=== PATIENT | female | born 1970 | race Caucasian/White ===

== ENCOUNTER 2017-09-21 17:23 | Emergency (ER) | payer MEDICAID ==
[2017-09-21] MEDS ORDERED: Acetaminophen 500 MG Tab PO ONE (17:57)
--- NOTE | 2017-09-21 18:01 | EDM.PDOC ---
ED HPI GENERAL MEDICAL PROBLEM - General Chief Complaint: Cardiovascular Problem Stated Complaint: HBP Time Seen by Provider: 09/21/17 17:49 - History of Present Illness INITIAL COMMENTS - FREE TEXT/NARRATIVE: HISTORY AND PHYSICAL: History of present illness: The patient is a 47-year-old female with no stated medical history and has a known hysterectomy and is not and presents with a 1 year history of elevated blood pressure which she takes at home he lives in [facility]. The patient says that she uses her roommate's blood pressure cuff and has taken her blood pressure once a week for the last year and knows it is been running elevated with the top number in the 200s. She has not sought treatment with a provider. The patient admits that she does eat food on the go and may ED sodium rich diet which is not correct for that either. The patient says that she has had intermittent headaches for the last 6 months but uses over -the-counter meds and is better. She presents today because she is here in town trying to relocate and live closer to her daughter and she told her daughter about these elevated blood pressures for the last one year and her headaches and the daughter thought she should come to the ER to be seen. Admits to me that if she were at home in [place] she would not be in ER today. She is only here at the insistence of her daughter. There is nothing new or different about her symptoms and she has no chest pain shortness of breath abdominal pain vomiting or diarrhea and has normal urine output. Currently the patient says she has a dull headache which is all over and it is not severe and she has no visual changes. The patient denies any leg or hand swelling and does not have puffiness in her face. Review of systems: As per history of present illness and below otherwise all systems reviewed and negative. Past medical history: As per history of present illness and as reviewed below otherwise noncontributory. Surgical history: As per history of present illness and as reviewed below otherwise noncontributory. Social history: No reported history of drug or alcohol abuse. Family history: As per history of present illness and as reviewed below otherwise noncontributory. Physical exam: Gen.: Well-developed well-nourished female who is mildly overweight and nontoxic and blood pressure and vitals have been noted by me. HEENT: Atraumatic, normocephalic, pupils reactive, negative for conjunctival pallor or scleral icterus, mucous membranes moist, throat clear, neck supple, nontender, trachea midline. Lungs: Clear to auscultation, breath sounds equal bilaterally, chest nontender. Heart: S1S2, regular rate and rhythm no overt murmurs Abdomen: Soft, nondistended, nontender. NABS. Pelvis: Deferred Genitourinary: Deferred. Rectal: Deferred. Extremities: Atraumatic, negative for cords or calf pain. Neurovascular unremarkable. Pedal edema no leg asymmetry Neuro: Awake, alert, oriented. Cranial nerves II through XII unremarkable. Cerebellum unremarkable. Motor and sensory unremarkable throughout. Exam nonfocal. Diagnostics: EKG CBC CMP UA Therapeutics: HCTZ ,Flagyl I discussed with the patient that her blood pressure needs to be lowered on a very slow and deliberate basis through our clinic. I will give her information to contact our clinic first thing in the morning to schedule a follow-up appointment this week. I've advised her on dietary restrictions with sodium and to start reading labels so she can avoid sodium rich foods. I will start her on hydrochlorothiazide and told her that this is very low dose but that she will need to have this follow-up appointment because she will likely need more medications than that. I will give her 1 dose of HCTZ but her repeat blood pressure was 183/96 I did also discuss with her the positive Trichomonas in the urine. Patient has had a hysterectomy and has no risks of GC and Chlamydia due to the result of having a hysterectomy. I will give her 1 dose of Flagyl just to eradicate the trichomonas that is present and have advised her to have a dialogue with her partner about getting treated and tested for STDs. Impression: Hypertension chronic untreated; trichomonas Definitive disposition and diagnosis as appropriate pending reevaluation and review of above. - Related Data Allergies Allergy/AdvReac Type Severity Reaction Status Date / Time No Known Allergies Allergy Verified 09/21/17 17:34 Home Meds: Home Meds . 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: Reports: None Musculoskeletal History: Reports: None Neurological History: Reports: None Psychiatric History: Reports: None Endocrine/Metabolic History: Reports: None Hematologic History: Reports: None Immunologic History: Reports: None Oncologic (Cancer) History: Reports: None Dermatologic History: Reports: None - Past Surgical History Head Surgeries/Procedures: Reports: None HEENT Surgical History: Reports: None Cardiovascular Surgical History: Reports: None Respiratory Surgical History: Reports: None GI Surgical History: Reports: None Female Surgical History: Reports: None Endocrine Surgical History: Reports: None Neurological Surgical History: Reports: None Musculoskeletal Surgical History: Reports: None Oncologic Surgical History: Reports: None Dermatological Surgical History: Reports: None Social & Family History - Family History Family Medical History: Noncontributory - Tobacco Use Smoking Status *Q: Current Every Day Smoker Years of Tobacco use: 18 Packs/Tins Daily: 0.5 - Caffeine Use Caffeine Use: Reports: Coffee - Recreational Drug Use Recreational Drug Use: No ED ROS GENERAL - Review of Systems Review Of Systems: ROS reveals no pertinent complaints other than HPI. ED EXAM, GENERAL - Physical Exam Exam: See Below (See dictation) Course - Vital Signs Last Recorded V/S: Last Vital Signs Temp 36.6 C 09/21/17 17:34 Pulse 99 09/21/17 17:34 Resp 20 09/21/17 17:34 BP 226/110 H 09/21/17 17:34 Pulse Ox 97 09/21/17 17:34 - Orders/Labs/Meds Orders: Active Orders 24 hr Category Date Time Status EKG Documentation Completion [RC] STAT Care 09/21/17 17:57 Active Labs: Laboratory Tests 09/21/17 09/21/17 09/21/17 Range/Units 18:00 18:11 18:11 WBC 15.29 H (4.0-11.0) K/uL RBC 5.00 (4.30-5.90) M/uL Hgb 14.9 (12.0-16.0) g/dL Hct 44.7 (36.0-46.0) % MCV 89.4 (80.0-98.0) fL MCH 29.8 (27.0-32.0) pg MCHC 33.3 (31.0-37.0) g/dL RDW Std Deviation 47.1 (28.0-62.0) fl RDW Coeff of Elizabeth 15 (11.0-15.0) % Plt Count 345 (150-400) K/uL MPV 10.80 (7.40-12.00) fL Neut % (Auto) 65.0 (48.0-80.0) % Lymph % (Auto) 27.3 (16.0-40.0) % [place] % (Auto) 5.3 (0.0-15.0) % Eos % (Auto) 2.0 (0.0-7.0) % Baso % (Auto) 0.4 (0.0-1.5) % Neut # (Auto) 9.9 H (1.4-5.7) K/uL Lymph # (Auto) 4.2 H (0.6-2.4) K/uL [place] # (Auto) 0.8 (0.0-0.8) K/uL Eos # (Auto) 0.3 (0.0-0.7) K/uL Baso # (Auto) 0.1 (0.0-0.1) K/uL Nucleated RBC % 0.0 /100WBC Nucleated RBCs # 0 K/uL Sodium 141 (136-146) mmol/L Potassium 4.0 (3.5-5.1) mmol/L Chloride 107 (98-110) mmol/L Carbon Dioxide 22 (21-31) mmol/L BUN 20 (6.0-23.0) mg/dL Creatinine 0.7 (0.6-1.5) mg/dL Est Cr Clr Drug Dosing 90.36 mL/min Estimated GFR (MDRD) > 60.0 ml/min Glucose 142 H (60-110) mg/dL Calcium 8.9 (8.8-10.8) mg/dL Total Bilirubin 0.1 (0.1-1.5) mg/dL AST 20 (5-40) IU/L ALT 32 (8-54) IU/L Alkaline Phosphatase 98 (40-150) Total Protein 7.8 (6.0-8.0) g/dL Albumin 4.1 (3.5-5.0) g/dL Globulin 3.7 H (2.0-3.5) g/dL Albumin/Globulin Ratio 1.1 L (1.3-2.8) Urine Color YELLOW Urine Appearance CLEAR Urine pH 7.0 (5.0-8.0) Ur Specific [place] 1.020 (1.001-1.035) Urine Protein NEGATIVE (NEGATIVE) mg/dL Urine Glucose (UA) NEGATIVE (NEGATIVE) mg/dL Urine Ketones NEGATIVE (NEGATIVE) mg/dL Urine Occult Blood TRACE-INTACT (NEGATIVE) Urine Nitrite NEGATIVE (NEGATIVE) Urine Bilirubin NEGATIVE (NEGATIVE) Urine Urobilinogen 0.2 (<2.0) EU/dL Ur Leukocyte Esterase TRACE (NEGATIVE) Urine RBC 0-2 (0-2/HPF) Urine WBC 0-2 (0-5/HPF) Ur Epithelial Cells MODERATE (NONE-FEW) Urine Bacteria RARE (NEGATIVE) Urine Trichomonas PRESENT (NEGATIVE) Meds: Medications Discontinued Medications Generic Name Dose Route Start Last Admin Trade Name Freq PRN Reason Stop Dose Admin Acetaminophen 1,000 mg 09/21/17 17:57 09/21/17 18:05 Tylenol Extra Strength PO 09/21/17 17:58 1,000 mg ONETIME ONE Administration Hydrochlorothiazide 25 mg 09/21/17 18:44 Hydrochlorothiazide PO 09/21/17 18:45 ONETIME ONE Metronidazole 2,000 mg 09/21/17 18:41 Metronidazole PO 09/21/17 18:42 NOW ONE Departure - Departure Time of Disposition: 18:51 Disposition: Home, Self-Care 01 Condition: Good Clinical Impression: Trichomonas infection Hypertension Qualifiers: Hypertension type: unspecified secondary hypertension Qualified Code(s): I15.9 - Secondary hypertension, unspecified Referrals: PCP,None [Primary Care Provider] - Forms: ED Department Discharge Additional Instructions: The following information is given to patients seen in the emergency department who are being discharged to home. This information is to outline your options for follow-up care. We provide all patients seen in our emergency department with a follow-up referral. The need for follow-up, as well as the timing and circumstances, are variable depending upon the specifics of your emergency department visit. If you don't have a primary care physician on staff, we will provide you with a referral. We always advise you to contact your personal physician following an emergency department visit to inform them of the circumstance of the visit and for follow-up with them and/or the need for any referrals to a consulting specialist. The emergency department will also refer you to a specialist when appropriate. This referral assures that you have the opportunity for followup care with a specialist. All of these measure are taken in an effort to provide you with optimal care, which includes your followup. Under all circumstances we always encourage you to contact your private physician who remains a resource for coordinating your care. When calling for followup care, please make the office aware that this follow-up is from your recent emergency room visit. If for any reason you are refused follow-up, please contact the [facility] emergency department at and ask to speak to the emergency department charge nurse. [facility] Primary care- Internal Medicine and Family [address] [address] Please call our clinic tomorrow morning at 8 AM to schedule an emergent ER follow-up appointment and please make sure that the nurse office nose your emergency department tonight. Please start reading labels and eating foods with lower sodium and avoid any extra salt added to foods. Please avoid fast food and junk food as these are all rich in sodium. Use [id number] Tylenol or ibuprofen for headache pain and return to ER as needed and as discussed. Please fill your prescription for HCTZ and start the prescription tomorrow Please have your partner treated for trichomonas and tested for other STDs as we discussed. - My Orders Last 24 Hours: My Active Orders 09/21/17 17:57 EKG Documentation Completion [RC] STAT - Assessment/Plan Last 24 Hours: My Active Orders 09/21/17 17:57 EKG Documentation Completion [RC] STAT
[2017-09-21 18:34] LABS: CHLORIDE,CL 107 mmol/L (98-110); SODIUM,NA 141 mmol/L (136-146)
[2017-09-21] MEDS ORDERED: metroNIDAZOLE 250 MG Tab PO ONE (18:41)
[2017-09-21] MEDS ORDERED: Hydrochlorothiazide 25 MG Tab PO ONE (18:44)
== END 2017-09-21 19:09 | disposition home or self-care (01) ==
LOC: MW.ED 17:23
DX: A59.9 Trichomoniasis, unspecified (principal); I15.9 Secondary hypertension, unspecified; F17.210 Nicotine dependence, cigarettes, uncomplicated
CPT/HCPCS: 36415; 80053; 81001; 85025; 93005; 99284; A9270

== ENCOUNTER 2017-12-05 14:05 | Emergency (ER) | payer SELFPAY ==
[2017-12-05] MEDS ORDERED: Lisinopril 10 MG Tab PO ONE (14:23)
--- NOTE | 2017-12-05 14:32 | EDM.PDOC ---
ED HPI GENERAL MEDICAL PROBLEM - General Chief Complaint: Back Pain or Injury Stated Complaint: UPPER LEG PAIN Time Seen by Provider: 12/05/17 14:30 Source of Information: Reports: Patient - History of Present Illness INITIAL COMMENTS - FREE TEXT/NARRATIVE: HISTORY AND PHYSICAL: History of present illness: [Patient presents with complaint low back pain however clinically she is easily up and off the exam table straight leg raise to 90 without any pain moving very quickly about the exam room no pain behaviors, she states she has been seen through [facility] and provided Cataflam and Flexeril with no benefit she states that time she has radiation from the left buttock down to her knee she denies any injury or trauma or history of previous back pain no footdrop saddle anesthesia bowel or urine symptoms Suspicious for drug-seeking behavior She is requesting "pain medication " She has no interest in treatment of her blood pressure she was seen a month ago and advised to treat her high blood pressure today will give her lisinopril ] Review of systems: As per history of present illness and below otherwise all systems reviewed and negative. Past medical history: As per history of present illness and as reviewed below otherwise noncontributory. Surgical history: As per history of present illness and as reviewed below otherwise noncontributory. Social history: No reported history of drug or alcohol abuse. Family history: As per history of present illness and as reviewed below otherwise noncontributory. Physical exam: HEENT: Atraumatic, normocephalic, pupils reactive, negative for conjunctival pallor or scleral icterus, mucous membranes moist, throat clear, neck supple, nontender, trachea midline. Lungs: Clear to auscultation, breath sounds equal bilaterally, chest nontender. Heart: S1S2, regular, negative for clicks, rubs, or JVD. Abdomen: Soft, nondistended, nontender. Negative for masses or hepatosplenomegaly. Negative for costovertebral tenderness. Pelvis: Stable nontender. Genitourinary: Deferred. Rectal: Deferred. Extremities: Atraumatic, negative for cords or calf pain. Neurovascular unremarkable. Straight leg raise 90 no pain no radiculopathy Neuro: Awake, alert, oriented. Cranial nerves II through XII unremarkable. Cerebellum unremarkable. Motor and sensory unremarkable throughout. Exam nonfocal. Diagnostics: [Lumbar spine UA hCG Drug screen ] Therapeutics: Lisinopril 20 mg by mouth now ] Impression: [ back pain complaint Methamphetamine positive Drug-seeking behaviors Hypertension uncontrollled ] Definitive disposition and diagnosis as appropriate pending reevaluation and review of above. low back pain Pain Score (Numeric/FACES): 10 - Related Data Allergies Allergy/AdvReac Type Severity Reaction Status Date / Time No Known Allergies Allergy Verified 12/05/17 14:14 Home Meds: Home Meds . 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, Musculoskeletal History: Reports: None Other Musculoskeletal History: hx Broken Tail bone Neurological History: Reports: None Psychiatric History: Reports: None Endocrine/Metabolic History: Reports: None Hematologic History: Reports: None Immunologic History: Reports: None Oncologic (Cancer) History: Reports: None Dermatologic History: Reports: None - Past Surgical History Head Surgeries/Procedures: Reports: None HEENT Surgical History: Reports: None Cardiovascular Surgical History: Reports: None Respiratory Surgical History: Reports: None GI Surgical History: Reports: None Female Surgical History: Reports: None, Hysterectomy Endocrine Surgical History: Reports: None Neurological Surgical History: Reports: None Musculoskeletal Surgical History: Reports: None Oncologic Surgical History: Reports: None Dermatological Surgical History: Reports: None Social & Family History - Family History Family Medical History: Noncontributory - Tobacco Use Smoking Status *Q: Current Every Day Smoker Years of Tobacco use: 30 Packs/Tins Daily: 0.5 - Caffeine Use Caffeine Use: Reports: Coffee, Soda, Tea - Alcohol Use Days Per Week of Alcohol Use: 1 Number of Drinks Per Day: 2 Total Drinks Per Week: 2 - Recreational Drug Use Recreational Drug Use: No ED ROS GENERAL - Review of Systems Review Of Systems: ROS reveals no pertinent complaints other than HPI. ED EXAM, GENERAL - Physical Exam Exam: See Below Course - Vital Signs Last Recorded V/S: Last Vital Signs Temp 97.0 F 12/05/17 14:12 Pulse 95 12/05/17 14:12 Resp 16 12/05/17 14:12 BP 226/120 H 12/05/17 14:35 Pulse Ox 95 12/05/17 14:12 - Orders/Labs/Meds Orders: Active Orders 24 hr Category Date Time Status Lumbar Spine 2 or 3V [CR] Stat Exams 12/05/17 14:23 Taken DRUG SCREEN, URINE [URCHEM] Stat Lab 12/05/17 14:40 Ordered HCG QUALITATIVE,URINE [URCHEM] Stat Lab 12/05/17 14:40 Ordered UA W/MICROSCOPIC [URIN] Stat Lab 12/05/17 14:40 Ordered Labs: Laboratory Tests 12/05/17 12/05/17 12/05/17 Range/Units 14:40 14:40 14:40 Urine Color YELLOW Urine Appearance CLEAR Urine pH 5.5 (5.0-8.0) Ur Specific [place] 1.025 (1.001-1.035) Urine Protein 30 (NEGATIVE) mg/dL Urine Glucose (UA) NEGATIVE (NEGATIVE) mg/dL Urine Ketones NEGATIVE (NEGATIVE) mg/dL Urine Occult Blood SMALL H (NEGATIVE) Urine Nitrite NEGATIVE (NEGATIVE) Urine Bilirubin NEGATIVE (NEGATIVE) Urine Urobilinogen 0.2 (<2.0) EU/dL Ur Leukocyte Esterase NEGATIVE (NEGATIVE) Urine RBC 0-2 (0-2/HPF) Urine WBC 0-2 (0-5/HPF) Ur Epithelial Cells FEW (NONE-FEW) Urine Bacteria RARE (NEGATIVE) Urine HCG, Qual NEGATIVE (NEGATIVE) Urine Opiates Screen NEGATIVE (NEGATIVE) Ur Oxycodone Screen NEGATIVE (NEGATIVE) Urine Methadone Screen NEGATIVE (NEGATIVE) Ur Barbiturates Screen NEGATIVE (NEGATIVE) Ur Phencyclidine Scrn NEGATIVE (NEGATIVE) Ur Amphetamine Screen POSITIVE (NEGATIVE) U Methamphetamines Scrn POSITIVE (NEGATIVE) U Benzodiazepines Scrn NEGATIVE (NEGATIVE) U Cocaine Metab Screen NEGATIVE (NEGATIVE) U Marijuana (THC) Screen NEGATIVE (NEGATIVE) Meds: Medications Discontinued Medications Generic Name Dose Route Start Last Admin Trade Name Freq PRN Reason Stop Dose Admin Lisinopril 20 mg 12/05/17 14:23 12/05/17 14:35 Prinivil PO 12/05/17 14:24 20 mg ONETIME ONE Administration Departure - Departure Time of Disposition: 15:31 Disposition: Home, Self-Care 01 Condition: Good Clinical Impression: Low back pain - Discharge Information Referrals: PCP,None [Primary Care Provider] - Forms: ED Department Discharge Additional Instructions: Medication as prescribed Return if symptoms persist or worsen Follow-up with primary care in [place] for continued management of her blood pressure The following information is given to patients seen in the emergency department who are being discharged to home. This information is to outline your options for follow-up care. We provide all patients seen in our emergency department with a follow-up referral. The need for follow-up, as well as the timing and circumstances, are variable depending upon the specifics of your emergency department visit. If you don't have a primary care physician on staff, we will provide you with a referral. We always advise you to contact your personal physician following an emergency department visit to inform them of the circumstance of the visit and for follow-up with them and/or the need for any referrals to a consulting specialist. The emergency department will also refer you to a specialist when appropriate. This referral assures that you have the opportunity for follow-up care with a specialist. All of these measure are taken in an effort to provide you with optimal care, which includes your follow-up. Under all circumstances we always encourage you to contact your private physician who remains a resource for coordinating your care. When calling for follow-up care, please make the office aware that this follow-up is from your recent emergency room visit. If for any reason you are refused follow-up, please contact the [facility] emergency department at and asked to speak to the emergency department charge nurse. - My Orders Last 24 Hours: My Active Orders 12/05/17 14:23 Lumbar Spine 2 or 3V [CR] Stat 12/05/17 14:40 DRUG SCREEN, URINE [URCHEM] Stat HCG QUALITATIVE,URINE [URCHEM] Stat UA W/MICROSCOPIC [URIN] Stat - Assessment/Plan Last 24 Hours: My Active Orders 12/05/17 14:23 Lumbar Spine 2 or 3V [CR] Stat 12/05/17 14:40 DRUG SCREEN, URINE [URCHEM] Stat HCG QUALITATIVE,URINE [URCHEM] Stat UA W/MICROSCOPIC [URIN] Stat
--- NOTE | 2017-12-05 15:34 | CR ---
EXAMINATION: Lumbar spine HISTORY: Pain COMPARISON: None TECHNIQUE: AP and lateral views FINDINGS: The lumbar spinal alignment is normal. The vertebral body heights and disc spaces appear we ll-maintained. There is no fracture or acute osseous abnormality. Bone mineralization is normal. Annette inal osteophytes are noted. IMPRESSION: Mild degenerative changes without acute findings.
== END 2017-12-05 15:43 | disposition home or self-care (01) ==
LOC: MW.ED 14:05
DX: M54.5 Low back pain (principal); I10 Essential (primary) hypertension; Z76.5 Malingerer [conscious simulation]; F15.10 Other stimulant abuse, uncomplicated; F17.210 Nicotine dependence, cigarettes, uncomplicated
CPT/HCPCS: 72100; 80305; 81001; 81025; 99283; A9270

== ENCOUNTER 2018-03-07 13:52 | Emergency (ER) | payer SELFPAY ==
[2018-03-07] MEDS ORDERED: Sodium Chloride 0.9% 2.5 ML Syringe FLUSH PRN (14:04)
[2018-03-07] MEDS ORDERED: Sodium Chloride 0.9% 10 ML Syringe FLUSH PRN (14:04)
[2018-03-07] MEDS ORDERED: Ibuprofen 600 MG Tab PO ONE (14:05)
--- NOTE | 2018-03-07 14:08 | EDM.PDOC ---
ED HPI GENERAL MEDICAL PROBLEM - General Chief Complaint: Abdominal Pain Stated Complaint: ABDOMINAL PAIN Time Seen by Provider: 03/07/18 13:53 Source of Information: Reports: Patient History Limitations: Reports: No Limitations - History of Present Illness INITIAL COMMENTS - FREE TEXT/NARRATIVE: History of present illness: []Patient presents with a fever and suprapubic pain. She has also felt nauseated and vomited this morning. Patient denies any vaginal discharge, dysuria or flank pain.s/p Hysterectomy in the past. Review of systems: As per history of present illness and below otherwise all systems reviewed and negative. Past medical history: As per history of present illness and as reviewed below otherwise noncontributory. Surgical history: As per history of present illness and as reviewed below otherwise noncontributory. Social history: No reported history of drug or alcohol abuse. Family history: As per history of present illness and as reviewed below otherwise noncontributory. Physical exam: General: Well developed, well nourished in NAD,, tachycardic hypertensive and febrile HEENT: Atraumatic, normocephalic, pupils reactive, negative for conjunctival pallor or scleral icterus, mucous membranes moist, throat clear, neck supple, nontender, trachea midline. Lungs: Clear to auscultation, breath sounds equal bilaterally, chest nontender. Heart: S1S2, regular, negative for clicks, rubs, or JVD. Abdomen: Soft, nondistended, nontender. Negative for masses or hepatosplenomegaly. Negative for costovertebral tenderness. Pelvis: Stable nontender. Genitourinary: Deferred. Rectal: Deferred. Extremities: Atraumatic, negative for cords or calf pain. Neurovascular unremarkable. Neuro: Awake, alert, oriented. Cranial nerves II through XII unremarkable. Cerebellum unremarkable. Motor and sensory unremarkable throughout. Exam nonfocal. Diagnostics: []CBC white count 27,000 with left shift, chemistries negative urine negative CT scan of the abdomen shows acute diverticulitis of the sigmoid colon without any abscess or perforation, normal appendix and cholelithiasis Therapeutics: [Toradol and IV hydration given, Cipro and Flagyl IV first dose given in the ED Impression: []Acute diverticulitis without perforation or abscess, uncontrolled hypertension Plan: []Follow-up with general surgery this week return to ER immediately if any symptoms change or worsen Definitive disposition and diagnosis as appropriate pending reevaluation and review of above. Lower Abdomen Pain Score (Numeric/FACES): 8 - Related Data Allergies Allergy/AdvReac Type Severity Reaction Status Date / Time No Known Allergies Allergy Verified 03/07/18 14:07 Home Meds: Home Meds Ciprofloxacin HCl [Cipro] 500 mg PO BID #20 tablet 03/07/18 [Rx] metroNIDAZOLE [Flagyl] 500 mg PO Q8H #30 tab 03/07/18 [Rx] Past Medical History HEENT History: Reports: None Cardiovascular History: Reports: None Respiratory History: Reports: None Gastrointestinal History: Reports: None Genitourinary History: Reports: None FRAME TENDER History: Reports: None, Musculoskeletal History: Reports: None Other Musculoskeletal History: hx Broken Tail bone Neurological History: Reports: None Psychiatric History: Reports: None Endocrine/Metabolic History: Reports: None Hematologic History: Reports: None Immunologic History: Reports: None Oncologic (Cancer) History: Reports: None Dermatologic History: Reports: None - Past Surgical History Head Surgeries/Procedures: Reports: None HEENT Surgical History: Reports: None Cardiovascular Surgical History: Reports: None Respiratory Surgical History: Reports: None GI Surgical History: Reports: None Female Surgical History: Reports: None, Hysterectomy Endocrine Surgical History: Reports: None Neurological Surgical History: Reports: None Musculoskeletal Surgical History: Reports: None Oncologic Surgical History: Reports: None Dermatological Surgical History: Reports: None Social & Family History - Family History Family Medical History: Noncontributory - Caffeine Use Caffeine Use: Reports: Coffee, Soda, Tea ED ROS GENERAL - Review of Systems Review Of Systems: ROS reveals no pertinent complaints other than HPI. ED EXAM, RENAL/ - Physical Exam Exam: See Below (History of present illness) Course - Vital Signs Last Recorded V/S: Last Vital Signs Temp 98.3 F 03/07/18 15:58 Pulse 95 03/07/18 15:58 Resp 19 03/07/18 15:58 BP 164/99 H 03/07/18 15:58 Pulse Ox 93 L 03/07/18 15:58 - Orders/Labs/Meds Orders: Active Orders 24 hr Category Date Time Status Abdomen Pelvis w Cont [CT] Stat Exams 03/07/18 15:06 Taken CULTURE URINE [RM] Stat Lab 03/07/18 14:04 Ordered UA W/MICROSCOPIC [URIN] Stat Lab 03/07/18 14:04 Ordered Ciprofloxacin in D5W [Cipro in D5W 400 MG/200 ML] 400 Med 03/07/18 16:30 Active mg Premix Bag 1 bag IV Q12H Sodium Chloride 0.9% [Saline Flush] Med 03/07/18 14:04 Active 10 ml FLUSH ASDIRECTED PRN Sodium Chloride 0.9% [Saline Flush] Med 03/07/18 14:04 Active 2.5 ml FLUSH ASDIRECTED PRN metroNIDAZOLE/Normal Saline [Flagyl 500 MG in NS 100 ML Med 03/07/18 16:29 Active ] 500 mg Premix Bag 1 bag IV ONETIME Saline Lock Insert [OM.PC] Stat Oth 03/07/18 14:04 Ordered Medication Orders Ciprofloxacin/Dextrose 400 mg/ (Premix) 200 mls @ 200 mls/hr IV Q12H FUAD Last Admin: 03/07/18 16:54 Dose: 200 mls/hr Metronidazole 500 mg/ Premix 100 mls @ 100 mls/hr IV ONETIME ONE Stop: 03/07/18 17:28 Sodium Chloride (Saline Flush) 10 ml FLUSH ASDIRECTED PRN PRN Reason: Keep Vein Open Sodium Chloride (Saline Flush) 2.5 ml FLUSH ASDIRECTED PRN PRN Reason: Keep Vein Open Labs: Laboratory Tests 03/07/18 03/07/18 03/07/18 Range/Units 14:04 14:10 14:10 WBC 27.02 H (4.0-11.0) K/uL RBC 4.78 (4.30-5.90) M/uL Hgb 14.2 (12.0-16.0) g/dL Hct 42.0 (36.0-46.0) % MCV 87.9 (80.0-98.0) fL MCH 29.7 (27.0-32.0) pg MCHC 33.8 (31.0-37.0) g/dL RDW Std Deviation 43.4 (28.0-62.0) fl RDW Coeff of Elizabeth 14 (11.0-15.0) % Plt Count 269 (150-400) K/uL MPV 10.80 (7.40-12.00) fL Add Manual Diff YES Neutrophils % (Manual) 78 (48.0-80.0) % Band Neutrophils % 10 % Lymphocytes % (Manual) 8 L (16.0-40.0) % Monocytes % (Manual) 2 (0.0-15.0) % Eosinophils % (Manual) 1 (0.0-7.0) % Basophils % (Manual) 1 (0.0-1.5) % Nucleated RBC % 0.0 /100WBC Absolute Seg Neuts 21.1 H (1.4-5.7) Band Neutrophils # 2.7 Lymphocytes # (Manual) 2.2 (0.6-2.4) Monocytes # (Manual) 0.5 (0.0-0.8) Eosinophils # (Manual) 0.3 (0.0-0.7) Basophils # (Manual) 0.3 H (0.0-0.1) Nucleated RBCs # 0 K/uL Sodium 139 (136-145) mmol/L Potassium 3.8 (3.5-5.1) mmol/L Chloride 102 (98-107) mmol/L Carbon Dioxide 28.1 (21.0-32.0) mmol/L BUN 11 (7.0-18.0) mg/dL Creatinine 0.7 (0.6-1.0) mg/dL Est Cr Clr Drug Dosing 89.40 mL/min Estimated GFR (MDRD) > 60.0 ml/min Glucose 105 (74-106) mg/dL Calcium 8.7 (8.5-10.1) mg/dL Total Bilirubin 0.7 (0.2-1.0) mg/dL AST 32 (15-37) IU/L ALT 38 (14-63) IU/L Alkaline Phosphatase 90 (46-116) U/L Total Protein 7.9 (6.4-8.2) g/dL Albumin 3.6 (3.4-5.0) g/dL Globulin 4.3 H (2.0-3.5) g/dL Albumin/Globulin Ratio 0.8 L (1.3-2.8) Urine Color YELLOW Urine Appearance CLEAR Urine pH 7.0 (5.0-8.0) Ur Specific [place] 1.015 (1.001-1.035) Urine Protein NEGATIVE (NEGATIVE) mg/dL Urine Glucose (UA) NEGATIVE (NEGATIVE) mg/dL Urine Ketones NEGATIVE (NEGATIVE) mg/dL Urine Occult Blood TRACE-INTACT (NEGATIVE) Urine Nitrite NEGATIVE (NEGATIVE) Urine Bilirubin NEGATIVE (NEGATIVE) Urine Urobilinogen 0.2 (<2.0) EU/dL Ur Leukocyte Esterase NEGATIVE (NEGATIVE) Urine RBC 1-3 (0-2/HPF) Urine WBC 0-2 (0-5/HPF) Ur Epithelial Cells FEW (NONE-FEW) Urine Bacteria RARE (NEGATIVE) Meds: Medications Generic Name Dose Route Start Last Admin Trade Name Freq PRN Reason Stop Dose Admin Ciprofloxacin/Dextrose 400 mg/ 200 mls @ 200 mls/hr 03/07/18 16:30 03/07/18 16:54 Premix IV 200 mls/hr Q12H FUAD Administration Metronidazole 500 mg/ Premix 100 mls @ 100 mls/hr 03/07/18 16:29 IV 03/07/18 17:28 ONETIME ONE Sodium Chloride 10 ml 03/07/18 14:04 Saline Flush FLUSH ASDIRECTED PRN Keep Vein Open Sodium Chloride 2.5 ml 03/07/18 14:04 Saline Flush FLUSH ASDIRECTED PRN Keep Vein Open Discontinued Medications Generic Name Dose Route Start Last Admin Trade Name Freq PRN Reason Stop Dose Admin Ibuprofen 600 mg 03/07/18 14:05 03/07/18 14:20 Motrin PO 03/07/18 14:06 600 mg ONETIME ONE Administration Iopamidol 100 ml 03/07/18 16:01 03/07/18 16:02 Isovue Multipack-370 (76%) IVPUSH 03/07/18 16:02 100 ml ONETIME STA Administration Ketorolac Tromethamine 30 mg 03/07/18 14:51 03/07/18 15:00 Toradol IVPUSH 03/07/18 14:52 30 mg ONETIME ONE Administration Departure - Departure Time of Disposition: 17:21 Disposition: Home, Self-Care 01 Condition: Good Clinical Impression: Diverticulitis large intestine Qualifiers: Diverticulitis bleeding: without bleeding Diverticulitis complication: without perforation or abscess Qualified Code(s): K57.32 - Diverticulitis of large intestine without perforation or abscess without bleeding - Discharge Information *PRESCRIPTION DRUG MONITORING PROGRAM REVIEWED*: Not Applicable Prescriptions: Ciprofloxacin HCl [Cipro] 500 mg PO BID #20 tablet metroNIDAZOLE [Flagyl] 500 mg PO Q8H #30 tab Referrals: PCP,None [Primary Care Provider] - Forms: ED Department Discharge Additional Instructions: The following information is given to patients seen in the emergency department who are being discharged to home. This information is to outline your options for follow-up care. We provide all patients seen in our emergency department with a follow-up referral. The need for follow-up, as well as the timing and circumstances, are variable depending upon the specifics of your emergency department visit. If you don't have a primary care physician on staff, we will provide you with a referral. We always advise you to contact your personal physician following an emergency department visit to inform them of the circumstance of the visit and for follow-up with them and/or the need for any referrals to a consulting specialist. The emergency department will also refer you to a specialist when appropriate. This referral assures that you have the opportunity for follow-up care with a specialist. All of these measure are taken in an effort to provide you with optimal care, which includes your follow-up. Under all circumstances we always encourage you to contact your private physician who remains a resource for coordinating your care. When calling for follow-up care, please make the office aware that this follow-up is from your recent emergency room visit. If for any reason you are refused follow-up, please contact the [facility] Emergency Department at and asked to speak to the emergency department charge nurse. Cipro and Flagyl take as directed until completed follow-up with general surgery return to ER if any symptoms worsen or change. [facility] - General Surgery Professional Building [address] [place] [address], [address] [place] [address] - My Orders Last 24 Hours: My Active Orders 03/07/18 14:04 CULTURE URINE [RM] Stat UA W/MICROSCOPIC [URIN] Stat Sodium Chloride 0.9% [Saline Flush] 10 ml FLUSH ASDIRECTED PRN Sodium Chloride 0.9% [Saline Flush] 2.5 ml FLUSH ASDIRECTED PRN Saline Lock Insert [OM.PC] Stat 03/07/18 15:06 Abdomen Pelvis w Cont [CT] Stat 03/07/18 16:29 metroNIDAZOLE/Normal Saline [Flagyl 500 MG in NS 100 ML] 500 mg Premix Bag 1 bag IV ONETIME 03/07/18 16:30 Ciprofloxacin in D5W [Cipro in D5W 400 MG/200 ML] 400 mg Premix Bag 1 bag IV Q12H - Assessment/Plan Last 24 Hours: My Active Orders 03/07/18 14:04 CULTURE URINE [RM] Stat UA W/MICROSCOPIC [URIN] Stat Sodium Chloride 0.9% [Saline Flush] 10 ml FLUSH ASDIRECTED PRN Sodium Chloride 0.9% [Saline Flush] 2.5 ml FLUSH ASDIRECTED PRN Saline Lock Insert [OM.PC] Stat 03/07/18 15:06 Abdomen Pelvis w Cont [CT] Stat 03/07/18 16:29 metroNIDAZOLE/Normal Saline [Flagyl 500 MG in NS 100 ML] 500 mg Premix Bag 1 bag IV ONETIME 03/07/18 16:30 Ciprofloxacin in D5W [Cipro in D5W 400 MG/200 ML] 400 mg Premix Bag 1 bag IV Q12H
[2018-03-07 14:46] LABS: CHLORIDE,CL 102 mmol/L (98-107); SODIUM,NA 139 mmol/L (136-145)
[2018-03-07] MEDS ORDERED: Ketorolac 30 MG/ML SDV IVPUSH ONE (14:51)
[2018-03-07] MEDS ORDERED: Iopamidol 755 MG/ML 500 ML Multipack Bottle IVPUSH STA (16:01)
[2018-03-07] MEDS ORDERED: metroNIDAZOLE/Normal Saline 500 MG in Premix Bag 1 BAG IV ONE (16:29)
[2018-03-07] MEDS ORDERED: Ciprofloxacin in D5W 400 MG in Premix Bag 1 BAG IV SCH ×2 (16:30)
[2018-03-07] MEDS ORDERED: Ibuprofen 400 MG Tab PO ONE (18:31)
--- NOTE | 2018-03-09 11:51 | CT ---
EXAM DATE: 03/07/18 PATIENT'S AGE: 48 Patient: MAIDA GOMEZ Facility: [place], [place] Site . Site : [id number] Study: CT Abdomen/Pelvis [id number] 3:53:06 PM Ordering Physician: Martinez Alfaro Final Report: INDICATION: Abdominal pain. COMPARISON: None. TECHNIQUE: CT abdomen and pelvis with intravenous contrast; no oral contrast; coronal and sagittal reformats. FINDINGS: No abnormal intra pulmonary nodular densities through the lung bases. Benign calcified granuloma right lower lobe. No evidence of pleural effusion. Normal size cardiac silhouette without any evidence of pericardial effusion. Diffuse fatty liver. No focal hepatic or splenic pathology. No pancreatic pathology. Cholelithiasis. No adrenal pathology. No kidneys stones or obstructive uropathy. No retroperitoneal lymphadenopathy. no evidence of abdominal ascites. Normal appendix. Acute diverticulitis sigmoid colon without any evidence of intra-abdominal abscess. Small amount of free fluid identified in the pelvic peritoneal cavity. Status post hysterectomy. Followup imaging or endoscopy suggested for assessment of the sigmoid colon after appropriate treatment for diverticulitis to rule out any underlying lesion. Impression : 1. No pneumoperitoneum or intestinal obstruction. 2. Acute diverticulitis sigmoid colon without any drainable intra-abdominal abscess. 3. Status post hysterectomy. 4. Normal appendix. 5. Cholelithiasis. Please note that all CT scans at this facility use dose modulation, iterative reconstruction, and/or weight-based dosing when appropriate to reduce radiation dose to as low as reasonably achievable. Dictated by Gus Palomo MD @ Mar 07 2018 4:20PM (Electronic Signature) Report Signed by Proxy. STACY
== END 2018-03-07 18:58 | disposition home or self-care (01) ==
LOC: MW.ED 13:52
DX: K57.32 Diverticulitis of large intestine without perforation or abscess without bleeding (principal); I10 Essential (primary) hypertension
CPT/HCPCS: 36415; 74177; 80053; 81001; 85025; 87086; 96365; 96367; 96375; 99284; A9270; J0744; J1885; J3490; Q9967

== ENCOUNTER 2018-03-08 09:49 | Emergency (ER) | payer SELFPAY ==
--- NOTE | 2018-03-08 10:24 | EDM.PDOC ---
ED HPI GENERAL MEDICAL PROBLEM - General Chief Complaint: Abdominal Pain Stated Complaint: ABDOMINAL PAIN Time Seen by Provider: 03/08/18 10:12 Source of Information: Reports: Patient History Limitations: Reports: No Limitations - History of Present Illness INITIAL COMMENTS - FREE TEXT/NARRATIVE: HISTORY AND PHYSICAL: History of present illness: Patient is a 48-year-old female who presents to the emergency room today with complaints of abdominal pain. She was seen in the emergency room on 03/07/2018 by our ER provider and diagnosed with diverticulitis of the large intestine ( without abscess, perforation or bleeding). She was prescribed Cipro and Flagyl and offered pain medication but declined. She states that she is having spasms in her colon using some [id number] medication to help her have bowel movements. She is here today requesting the pain medications that she was initially offered but had declined. She states she has no new symptoms and does not want another workup. She has has been here at the bedside and they plan to fill her antibiotic prescriptions this afternoon Denies any fever, chills, chest pain, shortness of breath, dysuria, nausea, vomiting. Review of systems: As per history of present illness and below otherwise all systems reviewed and negative. Past medical history: As per history of present illness and as reviewed below otherwise noncontributory. Surgical history: As per history of present illness and as reviewed below otherwise noncontributory. Social history: No reported history of drug or alcohol abuse. Family history: As per history of present illness and as reviewed below otherwise noncontributory. Physical exam: General: Well-developed and well-nourished 48-year-old female. Alert and oriented. Nontoxic appearing and in no acute distress. HEENT: Atraumatic, normocephalic, pupils equal and reactive bilaterally, negative for conjunctival pallor or scleral icterus, mucous membranes moist, throat clear, neck supple, nontender, trachea midline. No drooling or trismus noted. No meningeal signs Lungs: Clear to auscultation, breath sounds equal bilaterally, chest nontender. Heart: S1S2, regular rate and rhythm without overt murmur Abdomen: Soft, nondistended, diffuse mild tenderness throughout. Negative for masses or hepatosplenomegaly. Negative for costovertebral tenderness. Pelvis: Stable nontender. Genitourinary: Deferred. Rectal: Deferred. Skin: Intact, warm, dry. No lesions or rashes noted. Extremities: Atraumatic, negative for cords or calf pain. Neurovascular unremarkable. Neuro: Awake, alert, oriented. Cranial nerves II through XII unremarkable. Cerebellum unremarkable. Motor and sensory unremarkable throughout. Exam nonfocal. Notes: After discussing with patient the options of performing repeat labs at this time she declines. She states her main concern today is pain management. She was offered pain medications yesterday but had declined as she felt that she couldn't "handle it on my own". She received her first dose of Cipro and Flagyl IV while in the emergency room yesterday. Has a prescription that she is failing at noon, when the pharmacy opens. We'll give her one tablet Salinas here. Prescription for Salinas and Bentyl to fill later today. We discussed signs and symptoms that would prompt her to return to the emergency room. She is agreeable to plan of care. Denies any further questions or concerns at this time. Diagnostics: Declines Therapeutics: Cornelius Impression: Abdominal Pain Hx fo diverticulitis Plan: 1. Please take the antibiotics that were prescribed to you yesterday as directed. 2. Take the Salinas and Bentyl as directed. This medication may cause drowsiness so do not take it will driving her needing to be functioning outside of the house. To prevent constipation please increase her fluids and add Colace or MiraLAX to your daily regimen. 3. Follow-up with the general surgeon or your primary care provider as previously discussed. Return to the ED as needed and as discussed. Definitive disposition and diagnosis as appropriate pending reevaluation and review of above. 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, Musculoskeletal History: Reports: None Other Musculoskeletal History: hx Broken Tail bone Neurological History: Reports: None Psychiatric History: Reports: None Endocrine/Metabolic History: Reports: None Hematologic History: Reports: None Immunologic History: Reports: None Oncologic (Cancer) History: Reports: None Dermatologic History: Reports: None - Infectious Disease History Infectious Disease History: Reports: None - Past Surgical History Head Surgeries/Procedures: Reports: None HEENT Surgical History: Reports: None Cardiovascular Surgical History: Reports: None Respiratory Surgical History: Reports: None GI Surgical History: Reports: None Female Surgical History: Reports: None, Hysterectomy Endocrine Surgical History: Reports: None Neurological Surgical History: Reports: None Musculoskeletal Surgical History: Reports: None Oncologic Surgical History: Reports: None Dermatological Surgical History: Reports: None Social & Family History - Family History Family Medical History: Noncontributory - Caffeine Use Caffeine Use: Reports: Coffee, Soda, Tea ED ROS GENERAL - Review of Systems Review Of Systems: ROS reveals no pertinent complaints other than HPI. ED EXAM, GI/ABD - Physical Exam Exam: See Below (See dictation) Course - Vital Signs Last Recorded V/S: Last Vital Signs Temp 96.8 F 03/08/18 10:00 Pulse 75 03/08/18 10:00 Resp 18 03/08/18 10:00 BP 113/72 03/08/18 10:00 Pulse Ox 96 03/08/18 10:00 Departure - Departure Time of Disposition: 10:24 Disposition: Home, Self-Care 01 Clinical Impression: History of diverticulitis Abdominal pain Qualifiers: Abdominal location: generalized Qualified Code(s): R10.84 - Generalized abdominal pain - Discharge Information Instructions: Pain Medicine Instructions, [id number] Referrals: PCP,None [Primary Care Provider] - Additional Instructions: The following information is given to patients seen in the emergency department who are being discharged to home. This information is to outline your options for follow-up care. We provide all patients seen in our emergency department with a follow-up referral. The need for follow-up, as well as the timing and circumstances, are variable depending upon the specifics of your emergency department visit. If you don't have a primary care physician on staff, we will provide you with a referral. We always advise you to contact your personal physician following an emergency department visit to inform them of the circumstance of the visit and for follow-up with them and/or the need for any referrals to a consulting specialist. The emergency department will also refer you to a specialist when appropriate. This referral assures that you have the opportunity for follow-up care with a specialist. All of these measure are taken in an effort to provide you with optimal care, which includes your follow-up. Under all circumstances we always encourage you to contact your private physician who remains a resource for coordinating your care. When calling for follow-up care, please make the office aware that this follow-up is from your recent emergency room visit. If for any reason you are refused follow-up, please contact the [facility] Emergency Department at and asked to speak to the emergency department charge nurse. [facility] [address] [place] [phone] 1. Please take the antibiotics that were prescribed to you yesterday as directed. 2. Take the Salinas and Bentyl as directed. This medication may cause drowsiness so do not take it will driving her needing to be functioning outside of the house. To prevent constipation please increase her fluids and add Colace or MiraLAX to your daily regimen. 3. Follow-up with the general surgeon or your primary care provider as previously discussed. Return to the ED as needed and as discussed.
[2018-03-08] MEDS ORDERED: Acetaminophen/HYDROcodone 325-5 MG Tab PO ONE (10:25)
== END 2018-03-08 10:40 | disposition home or self-care (01) ==
LOC: MW.ED 09:49
DX: R10.84 Generalized abdominal pain (principal); Z87.19 Personal history of other diseases of the digestive system
CPT/HCPCS: 99283; A9270

== ENCOUNTER 2018-04-09 21:20 | Emergency (ER) | payer SELFPAY | END 2018-04-09 22:40 | LOC: MW.ED 21:20 | DX: Z53.21 Procedure and treatment not carried out due to patient leaving prior to being seen by health care provider (principal) ==

== ENCOUNTER 2018-05-05 09:15 | Emergency (ER) | payer SELFPAY ==
--- NOTE | 2018-05-05 10:05 | EDM.PDOC ---
ED HPI GENERAL MEDICAL PROBLEM - General Chief Complaint: General Stated Complaint: PT WOULD LIKE TO FLUSH STOMACH TUBE Time Seen by Provider: 05/05/18 10:02 Source of Information: Reports: Patient - History of Present Illness INITIAL COMMENTS - FREE TEXT/NARRATIVE: HISTORY AND PHYSICAL: History of present illness: []Patient presents post ESTHER tube placement or a diverticular abscess this was performed at [place] in mind that, is concerned that it is no longer functioning orders occluded as it has not been draining much only 20 mL of serous fluid in the last 24 hours. Patient is due for follow-up on of this week, we did flush the tube good appears to be functioning well and patient is reassured No fever nausea vomiting chills sweats Review of systems: As per history of present illness and below otherwise all systems reviewed and negative. Past medical history: As per history of present illness and as reviewed below otherwise noncontributory. Surgical history: As per history of present illness and as reviewed below otherwise noncontributory. Social history: No reported history of drug or alcohol abuse. Family history: As per history of present illness and as reviewed below otherwise noncontributory. Physical exam: HEENT: Atraumatic, normocephalic, pupils reactive, negative for conjunctival pallor or scleral icterus, mucous membranes moist, throat clear, neck supple, nontender, trachea midline. Lungs: Clear to auscultation, breath sounds equal bilaterally, chest nontender. Heart: S1S2, regular, negative for clicks, rubs, or JVD. Abdomen: Soft, nondistended, nontender. Negative for masses or hepatosplenomegaly. Negative for costovertebral tenderness. ESTHER tube noted Pelvis: Stable nontender. Genitourinary: Deferred. Rectal: Deferred. Extremities: Atraumatic, negative for cords or calf pain. Neurovascular unremarkable. Neuro: Awake, alert, oriented. Cranial nerves II through XII unremarkable. Cerebellum unremarkable. Motor and sensory unremarkable throughout. Exam nonfocal. Diagnostics: [Clinical] Therapeutics: [Flush tubing] Impression: [Medical screening exam Chronic history of baseline] Definitive disposition and diagnosis as appropriate pending reevaluation and review of above. - Related Data Allergies Allergy/AdvReac Type Severity Reaction Status Date / Time No Known Allergies Allergy Verified 05/05/18 09:25 Home Meds: Home Meds Ciprofloxacin HCl [Cipro] 04/26/18 [History] metroNIDAZOLE [Flagyl] 04/26/18 [History] Past Medical History HEENT History: Reports: None Cardiovascular History: Reports: None Respiratory History: Reports: None Gastrointestinal History: Reports: None Genitourinary History: Reports: None [employer] History: Reports: None, Musculoskeletal History: Reports: None Other Musculoskeletal History: hx Broken Tail bone Neurological History: Reports: None Psychiatric History: Reports: None Endocrine/Metabolic History: Reports: None Hematologic History: Reports: None Immunologic History: Reports: None Oncologic (Cancer) History: Reports: None Dermatologic History: Reports: None - Infectious Disease History Infectious Disease History: Reports: None - Past Surgical History Head Surgeries/Procedures: Reports: None HEENT Surgical History: Reports: None Cardiovascular Surgical History: Reports: None Respiratory Surgical History: Reports: None GI Surgical History: Reports: None Female Surgical History: Reports: None, Hysterectomy Endocrine Surgical History: Reports: None Neurological Surgical History: Reports: None Musculoskeletal Surgical History: Reports: None Oncologic Surgical History: Reports: None Dermatological Surgical History: Reports: None Social & Family History - Family History Family Medical History: Noncontributory - Tobacco Use Smoking Status *Q: Current Every Day Smoker Years of Tobacco use: 20 Packs/Tins Daily: 0.5 - Caffeine Use Caffeine Use: Reports: Coffee, Soda, Tea - Recreational Drug Use Recreational Drug Use: No ED ROS GENERAL - Review of Systems Review Of Systems: See Below ED EXAM, GENERAL - Physical Exam Exam: See Below Course - Vital Signs Last Recorded V/S: Last Vital Signs Temp 97.6 F 05/05/18 09:26 Pulse 88 05/05/18 09:26 Resp 20 05/05/18 09:26 BP 168/106 H 05/05/18 09:26 Pulse Ox 98 05/05/18 09:26 Departure - Departure Time of Disposition: 10:04 Disposition: Home, Self-Care 01 Condition: Good Clinical Impression: Encounter for medical screening examination - Discharge Information Referrals: PCP,None [Primary Care Provider] - Additional Instructions: The following information is given to patients seen in the emergency department who are being discharged to home. This information is to outline your options for follow-up care. We provide all patients seen in our emergency department with a follow-up referral. The need for follow-up, as well as the timing and circumstances, are variable depending upon the specifics of your emergency department visit. If you don't have a primary care physician on staff, we will provide you with a referral. We always advise you to contact your personal physician following an emergency department visit to inform them of the circumstance of the visit and for follow-up with them and/or the need for any referrals to a consulting specialist. The emergency department will also refer you to a specialist when appropriate. This referral assures that you have the opportunity for follow-up care with a specialist. All of these measure are taken in an effort to provide you with optimal care, which includes your follow-up. Under all circumstances we always encourage you to contact your private physician who remains a resource for coordinating your care. When calling for follow-up care, please make the office aware that this follow-up is from your recent emergency room visit. If for any reason you are refused follow-up, please contact the [facility] emergency department at and asked to speak to the emergency department charge nurse.
== END 2018-05-05 10:09 | disposition home or self-care (01) ==
LOC: MW.ED 09:15
DX: Z13.9 Encounter for screening, unspecified (principal); F17.210 Nicotine dependence, cigarettes, uncomplicated
CPT/HCPCS: 99282

== ENCOUNTER 2019-10-04 19:19 | Emergency (ER) | payer OTHER ==
--- NOTE | 2019-10-04 20:57 | EDM.PDOC ---
ED HPI GENERAL MEDICAL PROBLEM - General Chief Complaint: Upper Extremity Injury/Pain Stated Complaint: THUMB INJURY Time Seen by Provider: 10/04/19 20:57 Source of Information: Reports: Patient History Limitations: Reports: No Limitations - History of Present Illness INITIAL COMMENTS - FREE TEXT/NARRATIVE: HISTORY AND PHYSICAL: History of present illness: Patient is a 49-year-old female presents to the ED with complaint of right thumb injury. Patient states that she jammed her thumb on the wall earlier this afternoon. She states she went to work and pain in her thumb has gotten worse. She states it feels numb/tingly and painful. She denies proximal wrist or elbow pain. Patient's blood pressure is 207/110. Patient states she is aware of elevated blood pressure and is working on getting in to a PCP for further evaluation and blood pressure medications. She denies chest pain, shortness of breath, headache , dizziness, blurred vision, nausea, vomiting ,abdominal pain, diarrhea. I discussed with patient that I would like to get labs and EKG on her. Patient states she does not want a work up for her high blood pressure and only wants evaluation for her thumb. She understands my concerns and the risks of this. Review of systems: As per history of present illness and below otherwise all systems reviewed and negative. Past medical history: As per history of present illness and as reviewed below otherwise noncontributory. Surgical history: As per history of present illness and as reviewed below otherwise noncontributory. Social history: No reported history of drug or alcohol abuse. Family history: As per history of present illness and as reviewed below otherwise noncontributory. Physical exam: General: Patient sitting comfortably in no acute distress and nontoxic appearing HEENT: Atraumatic, normocephalic, pupils reactive, negative for conjunctival pallor or scleral icterus, mucous membranes moist, throat clear, neck supple, nontender, trachea midline. No meningeal signs. Lungs: Clear to auscultation, breath sounds equal bilaterally, chest nontender. Heart: S1S2, regular, negative for clicks, rubs, or overt murmur. Abdomen: Soft, nondistended, nontender. Negative for masses or hepatosplenomegaly. Negative for costovertebral tenderness. No rigidity, rebound , guarding. Pelvis: Stable nontender. Genitourinary: Deferred. Rectal: Deferred. Extremities: No obvious swelling or deformity. No "snuff box" tenderness. Pain to palpation of the [facility] of right thumb. Atraumatic, negative for cords or calf pain. Neurovascular unremarkable. Neuro: Awake, alert, oriented. Cranial nerves II through XII unremarkable. Cerebellum unremarkable. Motor and sensory unremarkable throughout. Exam nonfocal. Notes: Diagnostics: x-ray right thumb Therapeutics: thumb spica velcro splint Prescriptions: none Impression: Thumb tendonitis, elevated blood pressure Plan: Alternate tylenol and motrin as needed Follow up with primary care provider regarding high blood pressure Follow up with orthopedics for thumb Return to ED as needed as discussed Definitive disposition and diagnosis as appropriate pending reevaluation and review of above. right thumb Pain Score (Numeric/FACES): 8 - Related Data Allergies Allergy/AdvReac Type Severity Reaction Status Date / Time No Known Allergies Allergy Verified 10/04/19 21:01 Home Meds: Home Meds . 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, Musculoskeletal History: Reports: None Other Musculoskeletal History: hx Broken Tail bone Neurological History: Reports: None Psychiatric History: Reports: None Endocrine/Metabolic History: Reports: None Hematologic History: Reports: None Immunologic History: Reports: None Oncologic (Cancer) History: Reports: None Dermatologic History: Reports: None - Infectious Disease History Infectious Disease History: Reports: None - Past Surgical History Head Surgeries/Procedures: Reports: None HEENT Surgical History: Reports: None Cardiovascular Surgical History: Reports: None Respiratory Surgical History: Reports: None GI Surgical History: Reports: None Female Surgical History: Reports: None, Hysterectomy Endocrine Surgical History: Reports: None Neurological Surgical History: Reports: None Musculoskeletal Surgical History: Reports: None Oncologic Surgical History: Reports: None Dermatological Surgical History: Reports: None Social & Family History - Family History Family Medical History: Noncontributory - Caffeine Use Caffeine Use: Reports: Coffee, Soda, Tea Review of Systems - Review of Systems Review Of Systems: Comprehensive ROS is negative, except as noted in HPI. ED EXAM, GENERAL - Physical Exam Exam: See Below (see dictation) Course - Vital Signs Last Recorded V/S: Last Vital Signs Temp 97.7 F 10/04/19 21:02 Pulse 93 10/04/19 21:02 Resp 18 10/04/19 21:02 BP 206/115 H 10/04/19 21:02 Pulse Ox 98 10/04/19 21:02 Departure - Departure Time of Disposition: 21:58 Disposition: Home, Self-Care 01 Condition: Good Clinical Impression: Thumb tendonitis, Elevated blood pressure reading - Discharge Information Referrals: PCP,None [Primary Care Provider] - Forms: ED Department Discharge Additional Instructions: The following information is given to patients seen in the emergency department who are being discharged to home. This information is to outline your options for follow-up care. We provide all patients seen in our emergency department with a follow-up referral. The need for follow-up, as well as the timing and circumstances, are variable depending upon the specifics of your emergency department visit. If you don't have a primary care physician on staff, we will provide you with a referral. We always advise you to contact your personal physician following an emergency department visit to inform them of the circumstance of the visit and for follow-up with them and/or the need for any referrals to a consulting specialist. The emergency department will also refer you to a specialist when appropriate. This referral assures that you have the opportunity for follow-up care with a specialist. All of these measure are taken in an effort to provide you with optimal care, which includes your follow-up. Under all circumstances we always encourage you to contact your private physician who remains a resource for coordinating your care. When calling for follow-up care, please make the office aware that this follow-up is from your recent emergency room visit. If for any reason you are refused follow-up, please contact the [facility] Emergency Department at and asked to speak to the emergency department charge nurse. [facility] [address] [place] [id number] [facility] [address] [place] [id number] [facility] - [facility] Professional Building [address] [place] [address], [address] [place] [address] Alternate tylenol and motrin as needed Follow up with primary care provider regarding high blood pressure Follow up with orthopedics for thumb Return to ED as needed as discussed Sepsis Event Note - Focused Exam Vital Signs: Vital Signs Temp Pulse Resp BP Pulse Ox 10/04/19 21:02 97.7 F 93 18 206/115 H 98 Date Exam was Performed: 10/04/19 Time Exam was Performed: 22:02
--- NOTE | 2019-10-04 21:53 | CR ---
Right thumb: 3 views the right thumb were obtained. Comparison: No previous thumb or hand exam. Joint spaces are preserved. No fracture, dislocation or other bony abnormality is appreciated. Impression: 1. No bony abnormality is identified on 3 view right thumb study. Diagnostic code #1 Study was dictated in [place] Standard Time
== END 2019-10-04 22:34 | disposition home or self-care (01) ==
LOC: MW.ED 19:19
DX: M77.9 Enthesopathy, unspecified (principal); R03.0 Elevated blood-pressure reading, without diagnosis of hypertension
CPT/HCPCS: 73140-26-F5; 73140-F5; 99283-25

== ENCOUNTER 2022-11-15 23:25 | Emergency (ER) | payer SELFPAY ==
[2022-11-15] MEDS ORDERED: Ondansetron 4 MG/2 ML SDV IVPUSH ONE (23:33)
[2022-11-15] MEDS ORDERED: fentaNYL 50 MCG/ML SDV IVPUSH ONE (23:33)
[2022-11-16] MEDS ORDERED: fentaNYL 50 MCG/ML SDV IVPUSH ONE (00:39)
[2022-11-16] MEDS ORDERED: Acetaminophen/oxyCODONE 325-5 MG Tab PO ONE (01:46)
== END 2022-11-16 02:18 | disposition home or self-care (01) ==
LOC: MW.ED 23:25
DX: S82.851A Displaced trimalleolar fracture of right lower leg, initial encounter for closed fracture (principal); I10 Essential (primary) hypertension; W18.30XA Fall on same level, unspecified, initial encounter
CPT/HCPCS: 73562; 73610; 96374; 96375; 99284; A9270; J2405; J3010; 29515

== ENCOUNTER 2022-11-22 10:37 | Day surgery (SDC) | payer OTHER ==
[~2022-11-22 10:37] MED LIST: Albuterol 0.083% 2.5 MG/3 ML Neb Soln NEB PRN; HYDROmorphone 1 MG/ML Syringe IVPUSH PRN; Lactated Ringers 1,000 ML IV SCH; Metoclopramide 10 MG/2 ML SDV IVPUSH PRN; Morphine 2 MG/ML SYRINGE IVPUSH PRN; Naloxone 0.4 MG/ML SDV IVPUSH PRN; Ondansetron 4 MG/2 ML SDV IVPUSH PRN; Scopolamine 1.5 MG Transdermal Patch TOP ONE; fentaNYL 50 MCG/ML SDV IVPUSH PRN
[2022-11-22] MEDS ORDERED: Lidocaine 2% 5 ML SDV ONE (11:20)
[2022-11-22] MEDS ORDERED: Ropivacaine 0.5% 5 MG/ML 30 ML SDV ONE (11:23)
[2022-11-22] MEDS ORDERED: Dexmedetomidine 200 MCG/2 ML SDV ONE (12:00)
[2022-11-22] MEDS ORDERED: ceFAZolin 2 GM in Sodium Chloride 0.9% 50 ML IV ONE (12:00)
[2022-11-22] MEDS ORDERED: Rocuronium Bromide 50 MG/5 ML Syringe ONE (12:01)
[2022-11-22] MEDS ORDERED: Propofol 200 MG/20 ML SDV ONE (12:01)
[2022-11-22] MEDS ORDERED: ePHEDrine 50 MG/ML SDV ONE (12:20)
[2022-11-22] MEDS ORDERED: ceFAZolin 2 GM Vial ONE (12:31)
[2022-11-22] MEDS ORDERED: Dexamethasone 4 MG/ML 5 ML MDV ONE (13:05)
[2022-11-22] MEDS ORDERED: Phenylephrine HCl 0.5 MG/5 ML AMP ONE (13:14)
[2022-11-22] MEDS ORDERED: fentaNYL 100 MCG/2 ML SDV ONE (13:48)
[2022-11-22] MEDS ORDERED: Ondansetron 4 MG/2 ML SDV ONE (14:16)
[2022-11-22] MEDS ORDERED: Ketorolac 30 MG/ML SDV ONE (14:16)
[2022-11-22] MEDS ORDERED: Sugammadex Sodium 200 MG/2 ML VIAL ONE (14:16)
== END 2022-11-22 17:05 | disposition home or self-care (01) ==
LOC: MW.SDS 10:37
PROVIDERS: ATTEND Orthopaedic Surgery
DX: S82.851A Displaced trimalleolar fracture of right lower leg, initial encounter for closed fracture (principal); S93.431A Sprain of tibiofibular ligament of right ankle, initial encounter; I10 Essential (primary) hypertension; Z79.899 Other long term (current) drug therapy; Z87.891 Personal history of nicotine dependence; W00.0XXA Fall on same level due to ice and snow, initial encounter
CPT/HCPCS: 27814; 27829; 64445; 64447; 73700; A9270; J0690; J1100; J1885; J2370; J2405; J2704; J2795; J3010; J3490; J7120